=== PATIENT | female | born 1975 | race Caucasian/White ===

== ENCOUNTER 2023-02-27 08:51 | Emergency (ER) | payer BC ==
[2023-02-27] MEDS ORDERED: Morphine 10 MG/ML VIAL ONE (09:19)
[2023-02-27] MEDS ORDERED: predniSONE 20 MG TAB ONE (09:19)
== END 2023-02-27 09:26 | disposition home or self-care (01) ==
LOC: BURERS 08:51
DX: M54.50 Low back pain, unspecified (principal)
CPT/HCPCS: 96372; 99283; J2270; J7512